=== PATIENT | male | born 1980 | race Caucasian/White ===

== ENCOUNTER 2019-07-29 20:32 | Emergency (ER) | payer OTHER, SELFPAY ==
[2019-07-29 20:33] VITALS: BP 135/91; PULSE 89; RESP 18; TEMP 37.4; O2SAT 100; BMI 25.2
--- NOTE | 2019-07-29 20:36 | ED.RN ---
RN CALLED FOR EKG, NO OLD EKGS IN MUSE
--- NOTE | 2019-07-29 21:14 | EKG12_ITS ---
Test Reason : CP Blood Pressure : / mmHG Vent. Rate : 086 BPM Atrial Rate : 086 BPM P-R Int : 146 ms QRS Dur : 104 ms QT Int : 344 ms P-R-T Axes : 060 046 057 degrees QTc Int : 411 ms Normal sinus rhythm with sinus arrhythmia Incomplete right bundle branch block Borderline ECG Confirmed by DELORES VENEGAS, TIM ([id number]), editorial clerk MONIKA JACOBS ([id number]) on 08/02/2019 9:26:25 AM Referred By: MICHELLE Confirmed By:MARIE ESTRELLA MD
--- NOTE | 2019-07-29 21:14 | RAD_ITS ---
STUDY: X-RAY CHEST REASON FOR EXAM: Male, 39 years old. Chest pain TECHNIQUE: Single AP portable view of the chest. COMPARISON: None. FINDINGS: The lungs are clear and expanded. There is no demonstrated pleural abnormality. Normal size heart. Normal mediastinum and jae. Normal visualized pulmonary arteries. Normal visualized aortic arch and descending thoracic aorta. Normal visualized thoracic spine. Normal visualized ribs, clavicles, and shoulders. There is no demonstrated abnormality of the visualized soft tissue structures of the upper abdomen. RAD/Chest 1 View (Portable) IMPRESSION: Normal x-ray examination of the chest. Electronically Signed: Cesar Gomez MD at 21:35 EST , Service support ,
[2019-07-29 21:21] VITALS: O2SAT 100
[2019-07-29] MEDS: Aspirin 81 MG TAB.CHEW 324 MG PO (21:22)
[2019-07-29 21:29] LABS: Absolute Neutrophil Count 7.5 X10^3/uL (2.0-7.7); Basophil# 0.02 X10^3/uL; Basophil% 0.2 % (0-1); Eosinophil# 0.03 X10^3/uL; Eosinophils% 0.3 % (0-5); Hematocrit 44.7 % (40-54); Hemoglobin 15.2 g/dL (13.0-16.5); Lymphocyte % 15.7 % (19-41); Mean Corpuscular Hgb 29.6 pg (27.0-32.0); Mean Platelet Vol. 9.6 fl (6.2-12.0); Monocyte# 0.48 X10^3/uL; NRBC Flagged by Analyzer 0 % (0-5); Neutrophil % 78.4 % (47-70); Platelet Count 285 K/mm3 (150-450); RBC Distribution Width CV 12.3 % (11.6-14.6); Red Blood Count 5.14 M/mm3 (4.6-6.2); White Blood Count 9.6 K/mm3 (4.4-11.0)
[2019-07-29 21:41] LABS: Anion Gap 5 (5-15); BUN 14 mg/dL (7-18); BUN/Creat Ratio 15.4 RATIO (10-20); Calcium,Total 9.3 mg/dL (8.5-10.1); Chloride 106 mmol/L (98-107); Creatinine, Serum 0.91 mg/dL (0.70-1.30); EST Glomerular Filtration Rate 99 mL/min (>60); Est Glom Filt Rate - Afr Amer 120 mL/min (>60); Glucose 102 mg/dL (74-106); Potassium 3.9 mmol/L (3.5-5.1); Sodium Level 140 mmol/L (136-145)
[2019-07-29 21:43] VITALS: BP 138/97; PULSE 79; RESP 16; O2SAT 97
--- NOTE | 2019-07-29 22:05 | ED.VISSUMM ---
- ER Visit Summary Date of Service: 07/29/19 Chief Complaint: Pain History of Present Illness: The patient is a 39 M with left-sided chest pain that has been going on for 3 days. It feels like a pressure and also pinching at times. It does not radiate. It started after he took some energy pills which contained green tea, cocoa extract, L theanine, theobromine, and Rhodiola. Symptoms are worse when he moves or exerts himself. He feels short of breath at times and tired at times, but otherwise has no other associated symptoms. He denies any history of heart disease, PE, or aortic disease. Denies trauma. Denies fever or recent illness. Physical Examination: Afebrile and vital signs are unremarkable. Patient is alert and oriented. No acute distress. Heart regular rate and rhythm. Lungs clear. Skin normal. Extremities nontender with no edema. Good pulses. Cranial nerves grossly intact. Normal strength and sensation. Test Results: Chest x-ray showed no acute abnormalities. EKG showed sinus rhythm at a rate of 86 with an incomplete right bundle branch block pattern. No sign of ischemia or infarction pattern. CBC, BMP, troponin normal. Emergency Department Course and Treatment: Patient treated with aspirin. He was placed on a monitor. EKG and laboratory studies are all fairly unremarkable. X-rays unremarkable. Patient has atypical chest pain. He is PERC negative. He has no risk factors for ACS or aortic dissection. I believe he is appropriate for outpatient care. After his labs resulted, he was treated with Toradol. He will be prescribed anti-inflammatories. Return for any new or worsening issues. Treatment Plan: As above Disposition: Discharge Impression: 1. Atypical chest pain This note was generated with [employer] software. It may contain incorrect words, spelling, and punctuation that were not noted in review of the chart prior to signing ED Disposition - Plan for ED Patient: Referrals: Poncho Langley DO [Primary Care Provider] -
--- NOTE | 2019-07-29 22:08 | ED.DEP ---
ED Disposition - Plan for ED Patient: Instructions: CHEST PAIN, Uncertain Cause Prescriptions: Ibuprofen [Motrin] 800 mg PO TID PRN PRN #20 tab PRN Reason: Pain Or Fever Prescription Printed Referrals: Poncho Langley DO [Primary Care Provider] -
[2019-07-29 22:17] VITALS: BP 147/87; PULSE 73; PULSE 74; RESP 16; O2SAT 96; O2SAT 98
[2019-07-29] MEDS: Ketorolac 30 MG/ML Syringe IV (22:24)
== END 2019-07-29 22:40 | disposition home or self-care (01) ==
PROVIDERS: Emergency Provider Emergency Medicine; Family Provider Family Medicine; PCP Family Medicine
DX: R07.89 Other chest pain (principal); R06.02 Shortness of breath; I45.10 Unspecified right bundle-branch block
CPT/HCPCS: 71045; 80048; 84484; 85025; 93005; 96374; 99284; A4216

== ENCOUNTER → 2019-08-06 15:34 | Outpatient (CLI) | payer SELFPAY, OTHER ==
[2019-07-29 20:33] VITALS: BMI 25.2
--- NOTE | 2019-08-06 16:00 | MRI_ITS ---
STUDY: MRI LUMBAR SPINE WITHOUT CONTRAST REASON FOR EXAM: Male, 39 years old. Low back pain TECHNIQUE: Standardized fat and water weighted pulse sequences were obtained in the sagittal and axial planes. 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 The rest of the spine is intact and aligned. Marrow is normal with mild subchondral degeneration at the L5-S1. Paraspinal soft tissues and SI joints are normal. Conus medullaris terminates at T12-L1. Cauda equina is normal. Spinal canal is patent throughout. There is moderate bilateral L5-S1 foraminal stenosis. MRI/Spine Lumbar (Routine) IMPRESSION: L5 bilateral lysis, grade 2 anterolisthesis. Neurosurgical referral is advised. Patent canal, no neural compression. Electronically Signed: Dee Gore, at 17:56 EST Tel , Service support ,
== END ==
PROVIDERS: Family Provider Family Medicine; PCP Family Medicine
DX: M54.41 Lumbago with sciatica, right side (principal)
CPT/HCPCS: 72148